=== PATIENT | female | born 1950 | race African-American/Black ===

== ENCOUNTER 2018-08-08 21:15 | Emergency (ER) | payer OTHER ==
[~2018-08-08] VITALS: Ht 170.2 cm; Wt 124.7 kg
[~2018-08-08 21:15] MED LIST: ADULT ASPIRIN81 MG PO; CALCIUM 600 +1 EAC1 PO; CLARITIN10 M2 PO; CRESTOR20 MG PO; DILANTIN100 MG PO; ENDOCET 10-3251 EACH PO; HUMALOG100 UNIT/1 SUBQ; LANTUS100 UNIT/M SUBQ; LASIX 40 MG TAB40 M2 PO; LEVAQUIN 500 M500 M2 PO; MACROBID 100 M100 M1 PO; NORCO 5-325 TA1 EACH PO; NORVASC5 MG PO; NOVOLOG FL100 UNIT/M SUBQ; PERCOCET 10-321 EACH PO; PREDNISONE 10 M10 MG PO; SINGULAIR 10 MG10 M1 PO; SYNTHROID200 MCG PO; TRAMADOL HCL50 MG PO; TRESIBA FL200 UNIT/1 SUBQ; TRIAMTERENE-HC1 EAC2 PO; VENTOLIN HFA 1818 GM INH; VENTOLIN HFA INH8 GM INH; VITAMIN C1000 M1 PO; VITAMIN D3400 UNIT PO; VITAMIN E1000 UNI2 PO; WOMEN'S DAILY1 EAC1 PO; ZYLOPRIM300 MG PO
[2018-08-08] MEDS ORDERED: ZESTRIL40 MG PO (21:37)
[2018-08-08] MEDS ORDERED: GABAPENTIN 100100 MG PO (21:37)
[2018-08-08 22:23] LABS: ABSOLUTE NEUTROPHILS 7.4 thou/uL (1.4-8.2); BASOPHILS 0.9 % (0.0-2.0); EOSINOPHILS 0.6 % (0.0-3.0); HEMATOCRIT 30.9 % (37.0-47.0); HEMOGLOBIN 10.2 gm/dL (12.0-15.0); MCH 26.3 pg (26.0-34.0); MCV 79.7 fL (80.0-100.0); MONOCYTES 6.3 % (1.0-8.0); PLATELET COUNT 292 thou/uL (150-400); POLYS 72.2 % (36.0-66.0); RBC 3.87 mil/uL (4.20-5.00); RDW 15.2 % (10.5-14.5); WBC 10.2 thou/uL (4.0-11.0)
[2018-08-08 22:27] LABS: ANION GAP 9 mmol/L (7-16); BUN 46 mg/dL (7-18); CHLORIDE 105 mmol/L (98-107); CO2 27 mmol/L (21-32); CREATININE 1.8 mg/dL (0.6-1.0); GLUCOSE 266 mg/dL (74-106); POTASSIUM 4.3 mmol/L (3.5-5.1); SODIUM 141 mmol/L (136-145)
[2018-08-08 22:35] LABS: TROPONIN-I <0.06 ng/mL (<0.06)
[2018-08-08] MEDS ORDERED: PREDNISONE 20 M20 M1 PO (22:51)
[2018-08-08 23:03] VITALS: BP 162/82
--- NOTE | 2018-08-09 19:57 | EKG ---
[place] [address] [facility] 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 : 1950 Requested By: James Doss Order Number: [id number] MD: Derrick Morgan Measurements Intervals [place] Rate: 94 P: 24 [place]: 161 QRS: -43 QRSD: 97 T: 91 QT: 388 QTc: 486 Interpretive Statements Sinus rhythm LVH with secondary repolarization abnormality Nonspecific ST-T wave changes Compared to ECG 05/16/2015 19:22:31 no significant changes Electronically Signed On 08-09-2018 19:57:20 PATIENT SUPPORT REPRESENTATIVE by Derrick Morgan [email or web address] ��������������������������������������������� <ELECTRONICALLY SIGNED> ���������������������������������������� By: Derrick Morgan MD ��������������������������������������������� 08/09/181956 57 57 Derrick Morgan MD /EPI
== END 2018-08-08 23:03 | disposition home or self-care (01) ==
LOC: ER 21:15
PROVIDERS: Emergency Medicine
DX: J45.909 Unspecified asthma, uncomplicated (principal); I11.0 Hypertensive heart disease with heart failure; I50.9 Heart failure, unspecified; E89.0 Postprocedural hypothyroidism; Z88.0 Allergy status to penicillin; Z88.6 Allergy status to analgesic agent; Z88.8 Allergy status to other drugs, medicaments and biological substances

== ENCOUNTER → 2018-10-01 | Outpatient (CLI) | payer OTHER ==
[~2018-10-01] MED LIST changes: +GABAPENTIN 100100 MG PO; +PREDNISONE 20 M20 M1 PO; +ZESTRIL40 MG PO
[2018-10-01 15:18] LABS: HCO3 29.3 mmol/L (22.0-26.0); PCO2 52.5 mmHg (35.0-45.0); PO2 69.8 mmHg (80.0-100.0); pH 7.364 (7.360-7.450); sO2 93.2 % (92.0-98.0)
== END ==
LOC: PUL 14:46
PROVIDERS: Internal Medicine Pulmonary Disease
DX: G47.33 Obstructive sleep apnea (adult) (pediatric) (principal); R06.02 Shortness of breath

== ENCOUNTER → 2018-10-08 | Outpatient (CLI) | payer OTHER ==
--- NOTE | 2018-10-12 06:08 | SLE ---
[facility] [address] POLYSOMNOGRAPHY STUDY Name: JOANNE WHITFIELD Room #: REG [facility]#: [id number] Admission: 10/08/18 ������������������ Attend Phys: Regianldo Yee MD Discharge: ������������������ Date of : 46 Report #: [id number] THIS REPORT FOR: //name// CC: Reginaldo aGrcia MD DATE OF SERVICE: 10/08/2018 ATTENDING PHYSICIAN: Toni Garcia M.D. INTERPRETATION: The patient is a 68-year-old who weighs 281 pounds with a BMI of 44. The patient has moderate subjective hypersomnia with an [place] score of 15. The patient underwent home sleep study previously on 09/08/2018 and was found to have moderate JUAN at an AHI of 20 per hour along with moderate nocturnal hypoxia. The patient returned to [facility] for CPAP titration study. During the night study, the patient spent 416 minutes in bed and slept for 298 minutes with a low sleep efficiency of 72%. Sleep latency was 22.8 minutes with absent REM sleep. Overall, sleep architecture showed normal stage 1 sleep, increased stage 2 sleep, reduced N3 sleep and absent REM sleep. EKG monitoring revealed normal sinus rhythm. Average heart rate 77 beats per minute. Occasional PVCs observed. No clinically significant PLMS observed. The patient was started on CPAP at a pressure of 9 cm water and titrated up to 14 cm of water. At the final pressure, the patient slept for 58 minutes. The patient had supine sleep, but no REM sleep observed. The patient's AHI was reduced to 0 per hour and oxygen saturation remained above 91%. IMPRESSION: 1. Moderate sleep apnea diagnosed by home sleep study previously in September of 2018. 2. No clinically significant periodic limb movements. RECOMMENDATIONS: 1. CPAP at 14 cm water completely eliminated the patient's sleep apnea and should be used on a nightly basis. 2. Follow up in 4-6 weeks to assess compliance with CPAP and to document clinical improvement. 3. Weight loss is strongly advised. 4. Avoid TIP LENGTH CHECKER depressants. [facility] [address] [address] POLYSOMNOGRAPHY STUDY Name: JOANNE WHITFIELD Room #: REG [facility]#: [id number] Admission: 10/08/18 ������������������ Attend Phys: Reginaldo Yee MD Discharge: ������������������ Date of : 46 Report #: [id number] 5. Cautioned regarding driving until symptoms of sleep apnea resolve with the use of CPAP. ��������������������������������������������� <ELECTRONICALLY SIGNED> ���������������������������������������� By: Reginaldo Yee MD ��������������������������������������������� 10/12/18607 20 01 Reginaldo Yee MD /nt
== END ==
LOC: SLEEPLAB 15:27
DX: G47.33 Obstructive sleep apnea (adult) (pediatric) (principal); Z88.8 Allergy status to other drugs, medicaments and biological substances; Z88.0 Allergy status to penicillin

== ENCOUNTER → 2019-01-13 | Outpatient (CLI) | payer OTHER | LOC: RAD 09:16 | DX: I11.0 Hypertensive heart disease with heart failure (principal); I50.9 Heart failure, unspecified; R91.8 Other nonspecific abnormal finding of lung field; R09.89 Other specified symptoms and signs involving the circulatory and respiratory systems; Z88.0 Allergy status to penicillin; Z88.8 Allergy status to other drugs, medicaments and biological substances ==

== ENCOUNTER 2019-04-17 08:59 | Emergency (ER) | payer OTHER ==
[~2019-04-17] VITALS: Ht 167.6 cm; Wt 131.5 kg
[2019-04-17] MEDS ORDERED: MEDROLDOSEPACK PO (09:28)
== END 2019-04-17 09:27 | disposition home or self-care (01) ==
LOC: ER 08:59
DX: R21 Rash and other nonspecific skin eruption (principal); J45.909 Unspecified asthma, uncomplicated; I11.0 Hypertensive heart disease with heart failure; I50.9 Heart failure, unspecified; K74.60 Unspecified cirrhosis of liver; E89.0 Postprocedural hypothyroidism; Z88.0 Allergy status to penicillin; Z88.8 Allergy status to other drugs, medicaments and biological substances; Z98.51 Tubal ligation status

== ENCOUNTER 2019-08-12 17:01 | Emergency (ER) | payer OTHER ==
[~2019-08-12] VITALS: Ht 170.2 cm; Wt 117.9 kg
[~2019-08-12 17:01] MED LIST changes: +MEDROLDOSEPACK PO
[2019-08-12 17:02] VITALS: BP 172/76
[2019-08-12] MEDS ORDERED: MACROBID 100 M100 MG PO (17:21)
[2019-08-12 17:23] LABS: URINE BILIRUBIN NEGATIVE (Negative); URINE BLOOD 3+ (Negative); URINE COLOR YELLOW; URINE GLUCOSE-RANDOM* 3+ (Negative); URINE KETONES NEGATIVE (Negative); URINE NITRITE-REFLEX NEGATIVE (Negative); URINE PROTEIN (DIPSTICK) 3+ (Negative); URINE SPECIFIC GRAVITY 1.025 (1.005-1.035); URINE UROBILINOGEN 0.2 E.U./dl (0.2-1.0)
[2019-08-12 17:27] LABS: URINE CLARITY CLOUDY; URINE LEUKOCYTES-REFLEX 1+ (Negative)
[2019-08-12 17:37] LABS: BACTERIA-REFLEX >30 Many /HPF (None Seen); CASTS None Seen /LPF (None Seen); CRYSTALS None Seen /LPF (None Seen); SQUAMOUS 0-3 Few /LPF (0-3); URINE RBC 3-10 Few /HPF (0-2); URINE WBC-REFLEX >25 Many /HPF (0-5)
[2019-08-12] MEDS ORDERED: CIPROFLOXACIN500 M1 PO (17:40)
[2019-08-12] MEDS ORDERED: PYRIDIUM100 M1 PO (17:40)
== END 2019-08-12 17:58 | disposition still patient (30) ==
LOC: ER 17:01
PROVIDERS: Emergency Medicine
DX: N39.0 Urinary tract infection, site not specified (principal); N76.2 Acute vulvitis; R19.7 Diarrhea, unspecified; I11.0 Hypertensive heart disease with heart failure; I50.9 Heart failure, unspecified; J45.909 Unspecified asthma, uncomplicated; Z90.49 Acquired absence of other specified parts of digestive tract; Z98.51 Tubal ligation status; Z88.0 Allergy status to penicillin; Z88.8 Allergy status to other drugs, medicaments and biological substances

== ENCOUNTER 2020-05-30 18:23 | Emergency (ER) | payer MEDICARE, OTHER ==
[~2020-05-30] VITALS: Ht 170.2 cm; Wt 108.9 kg
[~2020-05-30 18:23] MED LIST changes: +CIPROFLOXACIN500 M1 PO; +MACROBID 100 M100 MG PO; +PYRIDIUM100 M1 PO
[2020-05-30 21:50] LABS: URINE BILIRUBIN NEGATIVE (Negative); URINE BLOOD 1+ (Negative); URINE CLARITY SL CLOUDY; URINE COLOR YELLOW; URINE GLUCOSE-RANDOM* NEGATIVE (Negative); URINE KETONES NEGATIVE (Negative); URINE NITRITE-REFLEX NEGATIVE (Negative); URINE PROTEIN (DIPSTICK) 2+ (Negative); URINE SPECIFIC GRAVITY 1.025 (1.005-1.035); URINE UROBILINOGEN 0.2 E.U./dl (0.2-1.0)
[2020-05-30 21:52] LABS: URINE LEUKOCYTES-REFLEX 2+ (Negative)
[2020-05-30 22:07] LABS: URINE WBC-REFLEX >25 Many /HPF (0-5)
[2020-05-30 22:08] LABS: BACTERIA-REFLEX >30 Many /HPF (None Seen); CASTS None Seen /LPF (None Seen); CRYSTALS None Seen /LPF (None Seen); SQUAMOUS 0-3 Few /LPF (0-3); URINE RBC 0-2 Rare /HPF (0-2)
[2020-05-30 22:31] LABS: ABSOLUTE NEUTROPHILS 4.6 thou/uL (1.4-8.2); BASOPHILS 1.4 % (0.0-2.0); EOSINOPHILS 0.1 % (0.0-3.0); HEMATOCRIT 27.2 % (37.0-47.0); HEMOGLOBIN 8.4 gm/dL (12.0-15.0); LYMPHOCYTES 27.5 % (24.0-44.0); MCH 24.3 pg (26.0-34.0); MCHC 31.1 g/dL (28.0-37.0); MCV 78.2 fL (80.0-100.0); MONOCYTES 11.3 % (1.0-8.0); PLATELET COUNT 215 thou/uL (150-400); POLYS 59.7 % (36.0-66.0); RBC 3.47 mil/uL (4.20-5.00); RDW 16.5 % (10.5-14.5); WBC 7.6 thou/uL (4.0-11.0)
[2020-05-30 22:43] LABS: CALCIUM 7.8 mg/dL (8.5-10.1); CREATININE 4.4 mg/dL (0.6-1.0); POTASSIUM 3.8 mmol/L (3.5-5.1)
[2020-05-30 22:44] LABS: ALBUMIN 2.6 g/dL (3.4-5.0); TOTAL BILIRUBIN 0.2 mg/dL (0.2-1.0); TOTAL PROTEIN 6.7 g/dL (6.4-8.2)
[2020-05-31 07:35] VITALS: BP 153/70
--- NOTE | 2020-06-01 07:17 | EKG ---
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: [facility] : 1950 Requested By: Rajendra Rogel Order Number: [id number] MD: Darryn Klein Measurements Intervals [place] Rate: 72 P: -21 [place]: 150 QRS: -35 QRSD: 107 T: 88 QT: 432 QTc: 473 Interpretive Statements Sinus rhythm Atrial premature complexes Abnormal R-wave progression, late transition Left ventricular hypertrophy Compared to ECG 08/08/2018 21:58:36 Atrial premature complex(es) now present Early repolarization no longer present ST (T wave) deviation no longer present Electronically Signed On 06-01-2020 7:17:09 CYBER THREAT ANALYST by Darryn Klein [email or web address] <ELECTRONICALLY SIGNED> By: Darryn Klein MD, FAC 06/01/20 0717 35 35 Darryn Klein MD, [facility] /EPI
== END 2020-05-31 07:39 ==
LOC: ER 18:23
PROVIDERS: Emergency Medicine
DX: J18.9 Pneumonia, unspecified organism (principal); R06.89 Other abnormalities of breathing; R42 Dizziness and giddiness; R53.83 Other fatigue; J45.909 Unspecified asthma, uncomplicated; I11.0 Hypertensive heart disease with heart failure; I50.9 Heart failure, unspecified; Z90.89 Acquired absence of other organs; Z98.51 Tubal ligation status; Z79.899 Other long term (current) drug therapy; Z79.2 Long term (current) use of antibiotics; Z79.4 Long term (current) use of insulin; Z88.8 Allergy status to other drugs, medicaments and biological substances; Z88.0 Allergy status to penicillin; Z20.828 Contact with and (suspected) exposure to other viral communicable diseases